=== PATIENT | male | born 1965 | race Caucasian/White ===

== ENCOUNTER 2019-09-02 11:24 | Emergency (ER) | payer MEDICAID ==
[~2019-09-02] VITALS: Ht 170.2 cm; Wt 94.5 kg
[2019-09-02 12:08] VITALS: Ht 170.2 cm; Wt 94.5 kg
[2019-09-02 14:29] VITALS: BP 145/80
== END 2019-09-02 14:29 | disposition home or self-care (01) ==
LOC: ED 11:24
DX: S39.012A Strain of muscle, fascia and tendon of lower back, initial encounter (principal); I10 Essential (primary) hypertension; E78.00 Pure hypercholesterolemia, unspecified; X58.XXXA Exposure to other specified factors, initial encounter; Y93.89 Activity, other specified; Y92.89 Other specified places as the place of occurrence of the external cause; Y99.8 Other external cause status
CPT/HCPCS: J1885